=== PATIENT | male | born 1955 | race Hispanic/Latino ===

== ENCOUNTER 2017-09-14 09:18 | Inpatient (IN) | payer BC ==
--- NOTE | 2017-09-14 09:50 | ED PDOC ---
Arrival/HPI - General Chief Complaint: Lower Extremity Problem/Injury Time Seen by Provider: 09/14/17 09:39 Historian: Patient - History of Present Illness Narrative History of Present Illness (Text): 09/14/17 09:40 61 year old male, who presents to the emergency department complaining of left sided hip and thigh pain since 1 day s/p mechanical fall on the way home. Patient reports slipping and landing on his left side and it has become worse today since he cannot bear weight and has difficulty walking. Patient denies head trauma, or loss of consciousness. Patient denies nausea, vomiting, abdominal pain, fever, or other complaints. Time/Duration: 24 hours Symptom Onset: Sudden Symptom Course: Unchanged, Worsening Activities at Onset: Light Context: Street, Slipped Past Medical History - Provider Review Nursing Documentation Reviewed: Yes - Psychiatric Hx Psychophysiologic Disorder: No Hx Substance Use: No - Anesthesia Hx Anesthesia: No Family/Social History - Physician Review Nursing Documentation Reviewed: Yes Family/Social History: Unknown Family HX Smoking Status: Never Smoked Hx Alcohol Use: No Hx Substance Use: No Allergies/Home Meds Allergies/Adverse Reactions: Allergies No Known Allergies Allergy (Verified 09/14/17 09:39) Home Medications: Home Meds Medication Instructions Recorded Confirmed No Known Home Med 09/14/17 09/14/17 Review of Systems - Review of Systems Constitutional: absent: Fevers ENT: absent: Sinus Congestion Respiratory: absent: SOB Cardiovascular: absent: Chest Pain Gastrointestinal: absent: Abdominal Pain Genitourinary Male: absent: Dysuria Musculoskeletal: Other (left sided hip pain and leg pain) Skin: absent: Rash Neurological: absent: Headache Endocrine: absent: Diaphoresis Physical Exam Vital Signs Temp Pulse Resp BP Pulse Ox 09/14/17 10:04 98.1 F 88 16 133/87 99 Appearance: Positive for: Well-Appearing, Non-Toxic, Comfortable Pain Distress: None Mental Status: Positive for: Alert and Oriented X 3 - Systems Exam Head: Present: Atraumatic, Normocephalic Extroacular Muscles: Present: EOMI Conjunctiva: Present: Normal Mouth: Present: Moist Mucous Membranes Upper Extremity: Present: Normal Inspection, Normal ROM, NORMAL PULSES, Neurovascularly Intact, Capillary Refill < 2s. No: Cyanosis, Edema, Tenderness , Swelling, Erythema, Deformity Lower Extremity: Present: Normal Inspection, NORMAL PULSES, Tenderness (left sided hip tenderness. worse with external rotation of hip), Neurovascularly Intact (good strength and sensation intact), Capillary Refill < 2 s. No: Edema , Cyanosis, Swelling, Erythema Neurological: Present: GCS=15, CN II-XII Intact, Speech Normal, Normal Cerebellar Funct Skin: Present: Warm, Dry, Normal Color. No: Rashes Psychiatric: Present: Alert, Oriented x 3, Normal Insight, Normal Concentration Medical Decision Making ED Course and Treatment: 09/14/17 Impression: 61 year old with left sided hip tenderness. worse with external rotation of hip complaining of left sided hip pain s/p mechanical fall. Differential Diagnosis included but are not limited to: r/o dislocation r/o fracture Plan: -- Left hip x-ray -- Toradol -- Reassess and disposition Progress Notes: 09/14/17 12:[address] Castorena who referred Dr. Allan. Dr. Allan came to evaluate patient and will plan for surgery. 09/14/17 12:00 Hip x-ray: Creator : Bam Godfrey MD FINDINGS: There is a minimally displaced intertrochanteric fracture of the left hip. There is chronic deformity of the femoral head and degenerative changes with bony sclerosis and loss of the joint space. IMPRESSION: Intertrochanteric fracture of the left hip EKG: NSR at [address] elevations, nl intervals - Lab Interpretations Lab Results: 09/14/17 11:40 09/14/17 11:40 Lab Results 09/14/17 11:40: Sodium 141, Potassium 4.2, Chloride 105, Carbon Dioxide 26, Anion Gap 13, BUN 18, Creatinine 0.7 L, Est GFR ( Amer) > 60, Est GFR ( Non-Af Amer) > 60, Random Glucose 125 H, Calcium 9.6 09/14/17 11:40: WBC 16.7 H, RBC 4.78, Hgb 14.3, Hct 43.0, MCV 90.0, MCH 29.9, MCHC 33.3, RDW 14.1, Plt Count 154, MPV 10.5, Gran % 85.8 H, Lymph % (Auto) 5.9 L, Howell % (Auto) 8.1 H, Eos % (Auto) 0.1 L, Baso % (Auto) 0.1, Gran # 14.33 H, Lymph # (Auto) 1.0 L, Howell # (Auto) 1.4 H, Eos # (Auto) 0.0, Baso # (Auto) 0.02 09/14/17 11:37: Blood Type O POSITIVE, Antibody Screen Negative, BBK History Checked No verified bt - RAD Interpretation Radiology Orders: 09/14/17 09:47 HIP MIN 2V W/ PELVIS LT [RAD] Stat 09/14/17 11:16 CHEST PORTABLE [RAD] Stat Resolution Specialist: Radiologist - Medication Orders Current Medication Orders: Discontinued Medications Ketorolac Tromethamine (Toradol) 30 mg IM STAT STA Stop: 09/14/17 09:48 Last Admin: 09/14/17 10:17 Dose: 30 mg MAR Pain Assessment Document 09/14/17 10:17 MS (Rec: 09/14/17 10:18 MS [facility] Pain Reassessment Is this a pain reassessment? No Sleep Is patient sleeping during reassessment? No Presence of Pain Presence of Pain Yes Pain Scale Used Pain Scale Used Numeric Location Left, Right or Bilateral Left Pain Location Body Site Hip Description Description Constant Intensity of Pain at present 7 Pain Behavior Guarding Rubbing Site IM Administration Charges Document 09/14/17 10:17 MS (Rec: 09/14/17 10:18 MS [facility] Injection Site MAR Injection Site Left Deltoid Charges for Administration # of IM Administrations 1 - Scribe Statement The provider has reviewed the documentation as recorded by the Alfredibbill Loyola Provider Scribe Attestation: All medical record entries made by the Scribbill were at my direction and personally dictated by me. I have reviewed the chart and agree that the record accurately reflects my personal performance of the history, physical exam, medical decision making, and the department course for this patient. I have also personally directed, reviewed, and agree with the discharge instructions and disposition. Disposition/Present on Arrival - Present on Arrival Any Indicators Present on Arrival: No History of DVT/PE: No History of Uncontrolled Diabetes: No Urinary Catheter: No History of Decub. Ulcer: No History Surgical Site Infection Following: None - Disposition Have Diagnosis and Disposition been Completed?: Yes Diagnosis: Hip fracture, left Disposition: HOSPITALIZED Disposition Time: 11:48 Patient Plan: Admission Condition: FAIR
--- NOTE | 2017-09-14 11:23 | RAD ---
PROCEDURE: Pelvis and left hip HISTORY: left hip pain r/o fracture vs dislocation COMPARISON: TECHNIQUE: Two views FINDINGS: There is a minimally displaced intertrochanteric fracture of the left hip. There is chronic deformity of the femoral head and degenerative changes with bony sclerosis and loss of the joint space. IMPRESSION: Intertrochanteric fracture of the left hip
[2017-09-14 11:53] LABS: BASO # 0.02 K/mm3 (0.0-2.0); BASO % 0.1 % (0.0-3.0); EOS % 0.1 % (1.5-5.0); GRAN # 14.33 (1.4-6.5); GRAN % 85.8 % (50.0-68.0); HEMOGLOBIN 14.3 g/dL (14.0-18.0); LYMPH % 5.9 % (22.0-35.0); MEAN CORPUSCULAR HEMOGLOBIN 29.9 pg (25.0-35.0); MEAN CORPUSCULAR HGB CONC 33.3 g/dl (31.0-37.0); MEAN PLATELET VOLUME 10.5 fl (7.0-11.0); MONO # 1.4 (0.1-0.6); MONO % 8.1 % (1.0-6.0); RBC 4.78 10^6/uL (3.5-6.1); RED CELL DISTRIBUTION WIDTH 14.1 % (11.5-14.5); WHITE BLOOD COUNT 16.7 10^3/ul (4.5-11.0)
[2017-09-14 12:03] LABS: BLOOD UREA NITROGEN 18 mg/dL (7-21); CALCIUM 9.6 mg/dL (8.4-10.5); GFR AFRICAN-AMERICAN > 60; GFR NON-AFRICAN AMERICAN > 60
--- NOTE | 2017-09-14 12:35 | RAD ---
HISTORY: preop COMPARISON: No prior. FINDINGS: LUNGS: No active pulmonary disease. PLEURA: No significant pleural effusion identified, no pneumothorax apparent. CARDIOVASCULAR: Normal. OSSEOUS STRUCTURES: No significant abnormalities. VISUALIZED UPPER ABDOMEN: Normal. OTHER FINDINGS: None. IMPRESSION: No active disease.
[2017-09-14 14:56] LABS: INR 1.21 (0.93-1.08); PARTIAL THROMBOPLASTIN TIME 28.7 Seconds (25.1-36.5); PROTHROMBIN TIME 13.9 SECONDS (9.4-12.5)
[2017-09-14 15:14] VITALS: BMI 25.8
[2017-09-14] MEDS ORDERED: Influenza Vaccine 60 mcg/0.5 mL SYR (4YR UP) IM ONE (15:14)
[2017-09-14] MEDS ORDERED: Pneumococcal 23-Valent Vaccine IM ONE (15:14)
[2017-09-14] MEDS: ceFAZolin 1 gm in NS 1 GM/100 ML BAG IVPB SCH ×2 (16:14→22:23)
--- NOTE | 2017-09-14 17:25 | CARD ---
APPROVED REPORT EKG Measurement Heart [id number] <Conclusion> Normal sinus rhythm Normal ECG
[2017-09-14] MEDS: Oxycodone/Acetaminophen 5/325 mg Tab PO PRN (20:01)
--- NOTE | 2017-09-15 01:12 | HP ---
DATE OF EXAM: 09/14/2017 HISTORY OF PRESENT ILLNESS: This 61-year-old male is admitted with acute left hip fracture. He states that last evening he was walking on black ice, slipped and fell and injured his left hip. He went home, took some [id number]-pso-[id number] anti-inflammatory agents and thought it was a bruise that would wear off with rest. However, this morning when he tried to weight bear and walk on it, he had extreme pain and could not put any weight on his left hip and came to the [facility] ER for further evaluation of the above. There, he was noted to have x-ray evidence of left hip fracture and is admitted for the above. Upon further questioning of the patient, when he fell, he denied any loss of consciousness and states he did not hit his head or any other bones. When questioning this patient, he denied any fever, chills and states he is on no outpatient medication and has no known illnesses. ALLERGIES: HE DENIED MEDICATION ALLERGY. 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 FAMILY HISTORY: Noncontributory. HOME MEDICATIONS: None. REVIEW OF SYSTEMS: CONSTITUTIONAL REVIEW: He denied fever or chills. HEENT: Head review, denied any loss of consciousness or head trauma. Eye review, denied change in visual acuity. Ear review, denied hearing loss. Throat review, denied swallowing difficulty. NECK REVIEW: Denied stiffness. CARDIAC: Denied any knowledge of hypertension or myocardial infarction. PULMONARY: No cough. No hemoptysis. GI: No knowledge of hematemesis or melena. : No dysuria. SKIN: No rashes. VASCULAR: No claudication. PSYCHOLOGICAL: No depression. No anxiety. NEUROLOGICAL: No stroke. PHYSICAL EXAMINATION: VITAL SIGNS: Temperature 98.1, respirations 16, pulse 88 and blood pressure 133/87 with a pulse ox of 99% on room air. HEENT: Head, normocephalic and atraumatic. Eyes, no icterus. Ears, clear. Throat, non-injected. NECK: Supple. HEART: Was regular. S1, S2. No pathological rubs, murmurs or gallops. LUNGS: Were clear to auscultation. ABDOMEN: Was soft, nontender. No palpable organomegaly. No rebound, no guarding, no tenderness. EXTREMITIES: No clubbing, no cyanosis, no edema. Left hip was slightly externally rotated with pain on movement. SKIN: Without rash. NEUROLOGICAL: Intact. PSYCHOLOGICAL: Alert. VASCULAR: Legs warm to touch. Chest x-ray was reviewed. There was no evidence of pneumonia, pleural effusion or pneumothorax. Left hip x-ray was reviewed. It revealed an intertrochanteric fracture of the left hip. There were degenerative changes noted consistent with chronic arthritis. EKG was normal sinus rhythm. Labs showed white count 16,700, hemoglobin 14.3, hematocrit 43.0, platelets 154,000. PT/INR 1.21. PTT 28.7. Sodium 141, K 4.2, chloride 105, bicarb 26, BUN 18, creatinine 0.7 and random blood sugar 125. IMPRESSION: This is a 61-year-old male with a slip and fall and acute left hip fracture that will require surgical repair with probable stress leukocytosis and need for deep vein thrombosis prophylaxis given his bedridden status at present. PLAN: The patient will have blood and urine cultures obtained for completeness sake and will be covered with Ancef 1 g IV q.8 hours while awaiting culture results, he is ordered to have Zofran 4 mg IV q.6 hours p.r.n. nausea and vomiting, Tylenol 650 p.o. q.6 hours p.r.n. mild pain or temperature greater than 101, Percocet 5/325 one tablet p.o. q.6 hours p.r.n. severe pain and he will start heparin post operatively as outlined by Dr. Faulkner from Orthopedic Surgery. I have instructed his nurse, John Hankins, registered nurse, to instruct the patent on the use of incentive spirometry. He is ordered to have a regular diet, but will be n.p.o. past midnight in preparation for surgical repair of the left hip fracture in the a.m. and he is also ordered to have a basic metabolic panel and CBC again in the a.m. All of the above was discussed in detail with patient and nursing at bedside. All questions were answered. He will need to be scheduled for transferred for subacute rehab when medically stable postoperatively. Raeann Castorena MD [facility] # [id number] KONG
[2017-09-15 01:35] LABS: PH,URINE 6.5 (4.7-8.0); URINE BILIRUBIN NEGATIVE (NEGATIVE); URINE BLOOD NEGATIVE (NEGATIVE); URINE GLUCOSE (UA) NEGATIVE (NEGATIVE); URINE LEUKOCYTE ESTERASE NEGATIVE Leu/uL (NEGATIVE); URINE PROTEIN NEGATIVE mg/dL (<30 mg/dL)
[2017-09-15 01:36] LABS: URINE APPEARANCE CLEAR (CLEAR); URINE COLOR YELLOW (YELLOW)
[2017-09-15] MEDS: ceFAZolin 1 gm in NS 1 GM/100 ML BAG IVPB SCH ×3 (06:37→21:56)
[2017-09-15 07:19] LABS: HEMOGLOBIN 13.6 g/dL (14.0-18.0); MEAN CELL VOLUME 90.9 fl (80.0-105.0); MEAN CORPUSCULAR HEMOGLOBIN 28.9 pg (25.0-35.0); MEAN CORPUSCULAR HGB CONC 31.9 g/dl (31.0-37.0); MEAN PLATELET VOLUME 10.7 fl (7.0-11.0); RBC 4.7 10^6/uL (3.5-6.1); RED CELL DISTRIBUTION WIDTH 14.1 % (11.5-14.5); WHITE BLOOD COUNT 12.2 10^3/ul (4.5-11.0)
[2017-09-15] MEDS ORDERED: Nitroglycerin 2% Ointment Foilpak UD TOP PRN (07:22)
[2017-09-15 07:55] LABS: BLOOD UREA NITROGEN 11 mg/dL (7-21); CALCIUM 9.5 mg/dL (8.4-10.5); GFR AFRICAN-AMERICAN > 60; GFR NON-AFRICAN AMERICAN > 60
[2017-09-15] MEDS ORDERED: Midazolam 2 MG/2 ML VIAL ONE (08:59)
[2017-09-15] MEDS ORDERED: Propofol 10 mg/ml Inj (20 ML) ONE (08:59)
[2017-09-15] MEDS ORDERED: Rocuronium 10 mg/ml (5 ml) ONE (09:10)
[2017-09-15] MEDS ORDERED: Sodium Chloride 0.9% 1,000 ML IV SCH (09:15)
[2017-09-15] MEDS ORDERED: Sevoflurane - Inhalation Anesthetic Liq (250 ml) ONE (09:16)
[2017-09-15] MEDS ORDERED: Bupivacaine 0.5% Inj(30mL) ONE (09:34)
[2017-09-15] MEDS ORDERED: HYDROmorphone 0.5 mg/0.5 ml ISec ONE ×2 (11:13→11:41)
--- NOTE | 2017-09-16 00:50 | PN ---
DATE: 09/15/2017 SUBJECTIVE: This 61-year-old male was examined post left hip fracture repair. He is status post open reduction and internal fixation with pinning via an anterior approach to repair his left hip fracture by Dr. Bam Faulkner from Orthopedics. Patient postoperatively is alert and oriented, complaining of expected postoperative pain and denying any fever, chills, chest pain or shortness of breath. PHYSICAL EXAMINATION: GENERAL: Patient was lying in bed. VITAL SIGNS: Temperature of 97.9, respirations 16, pulse 80 and blood pressure 165/96 and pulse ox of 96% room air. HEENT: Head: Normocephalic, atraumatic. Eyes: No icterus. Ears: Clear. Throat: Noninjected. NECK: Supple. HEART: Regular S1, S2. LUNGS: Clear. ABDOMEN: Soft. EXTREMITIES: No edema. Left hip dressing clean and intact. VASCULAR: Legs warm to touch. PSYCHOLOGIC: Alert and oriented x3. NEUROLOGIC: Grossly intact. LABORATORY DATA: White count 12,200, previously 16,700; hemoglobin 13.6; hematocrit 42.7; platelets 145,000. PT/INR 1.21, PTT 28.7. Sodium 138, K 4.0, chloride 106, bicarb 26, BUN 11, creatinine 0.6, random blood sugar 113, calcium 9.5. Urinalysis unremarkable. Blood culture, no growth at 24 hours. IMPRESSION: A 61-year-old male status post a slip and fall where he sustained a left intertrochanteric fracture of the left hip that was repaired today and now is postop. PLAN: As discussed with the patient and Dr. Bam Faulkner, will be to maintain this patient on incentive spirometry and I have encouraged the patient to perform it q. 1 hour. He continues on Ancef 1 g IV q. 8 hours as agreed upon with Dr. Bam Faulkner, Orthopedics. He will resume heparin 5000 units subcu q. 12 tomorrow when cleared by Dr. Faulkner. He continues on Toradol 30 mg IM q. 6 hours p.r.n. severe pain, Tylenol 650 p.o. q. 6 hours p.r.n. [id number] pain and Percocet 5-325 one p.o. q. 6 hours p.r.n. severe pain. He is ordered to have Zofran 4 mg IV q. 6 hours p.r.n. nausea, vomiting. There is an order for nitroglycerin 1 inch to chest wall q. 4 hours p.r.n. accelerated hypertension if systolic blood pressure should be greater than 160 or diastolic blood pressure should be greater than 100. I am awaiting the results of his urine culture. He will have a repeat CBC and comprehensive metabolic panel in the a.m. and patient continues on regular diet and is wearing antiembolism compression stockings as outlined by Dr. Faulkner. Patient has an order to discontinue his operative Morrow catheter in the morning and physical therapy will be outlined by Orthopedics based on their clinical judgment. All of the above was reviewed in detail with patient and nursing and Dr. Faulkner. All questions were answered. Raeann Castorena MD [email or web address]
[2017-09-16] MEDS: ceFAZolin 1 gm in NS 1 GM/100 ML BAG IVPB SCH ×2 (05:49→13:51)
[2017-09-16 07:42] LABS: HEMOGLOBIN 11.6 g/dL (14.0-18.0)
[2017-09-16 07:52] LABS: ALB/GLOB RATIO 1.2 (1.1-1.8); ALBUMIN 3.2 g/dL (3.0-4.8); ALT/SGPT 40 U/L (7-56); AST/SGOT 41 U/L (17-59); BLOOD UREA NITROGEN 14 mg/dL (7-21); CALCIUM 8.5 mg/dL (8.4-10.5); GFR AFRICAN-AMERICAN > 60; GFR NON-AFRICAN AMERICAN > 60
[2017-09-16 08:56] VITALS: RESP 20
[2017-09-16 11:34] LABS: BASO # 0.02 K/mm3 (0.0-2.0); BASO % 0.2 % (0.0-3.0); EOS # 0.2 (0.0-0.7); EOS % 1.5 % (1.5-5.0); GRAN # 10.01 (1.4-6.5); GRAN % 79.9 % (50.0-68.0); HEMOGLOBIN 12.3 g/dL (14.0-18.0); LYMPH # 1.2 (1.2-3.4); LYMPH % 9.5 % (22.0-35.0); MEAN CELL VOLUME 90.1 fl (80.0-105.0); MEAN CORPUSCULAR HEMOGLOBIN 29.1 pg (25.0-35.0); MEAN CORPUSCULAR HGB CONC 32.3 g/dl (31.0-37.0); MEAN PLATELET VOLUME 10.7 fl (7.0-11.0); MONO # 1.1 (0.1-0.6); MONO % 8.9 % (1.0-6.0); RBC 4.23 10^6/uL (3.5-6.1); RED CELL DISTRIBUTION WIDTH 13.7 % (11.5-14.5); WHITE BLOOD COUNT 12.5 10^3/ul (4.5-11.0)
--- NOTE | 2017-09-16 14:44 | PN ---
DATE: 09/16/2017 SUBJECTIVE: A 61-year-old male. The patient is 1 day postop of his left hip fracture treated with a peritroch marlen from [employer]. He does have ipsilateral arthritis of his left hip also, but he is moving around quite well in bed. We are going to get him up out of bed and ambulate with a walker, weightbearing to tolerance and his labs look stable. Plan is to get him to a subacute rehab in a couple of days and progress therapy there and he will be out of work for at least 3 months. Otherwise, he is doing well. Bam Faulkner DO
--- NOTE | 2017-09-16 16:06 | PN ---
DATE: 09/16/2017 SUBJECTIVE: This 61-year-old male was examined at the bedside. He was out of bed to chair. This case was reviewed in detail with himself, family and nurse, Margaret Dunbar, registered nurse. The patient was seen earlier today by Dr. Faulkner. He has already walked with a walker with physical therapy. He complains of expected left postoperative hip repair pain and is receiving parenteral Toradol and oral Tylenol p.r.n. discomfort. Of note, he denies any fever, chills, chest pain or shortness of breath. PHYSICAL EXAMINATION VITAL SIGNS: Temperature is 98.3, respirations 20, pulse 97 and blood pressure 134/92 with a pulse ox of 94% on room air. HEENT: Head: Normocephalic, atraumatic. Eyes: No icterus. Ears: Clear. Throat: Noninjected. NECK: Supple. HEART: Regular S1, S2. LUNGS: Clear. ABDOMEN: Soft. EXTREMITIES: No edema. SKIN: Without rash. NEUROLOGIC: Intact. PSYCHOLOGIC: Alert. VASCULAR: Legs warm to touch. Left hip dressing clean and dry. LABORATORY DATA: White count 12,500, initially 16,700; hemoglobin 12.3; hematocrit 38.1; platelets 143,000. PT/INR 1.21, PTT 28.7. Sodium 139, K 3.8, chloride 107, bicarb 24, BUN 14, creatinine 0.6, random blood sugar 103. All liver function testing was normal including bilirubin 0.8, AST 41, ALT 40 and alkaline phosphatase 53. Urinalysis was unremarkable. IMPRESSION: This is a 61-year-old male admitted with acute left hip fracture secondary to a slip and fall with expected postoperative pain and stress leukocytosis improving with microbiology report showing no growth of blood and urine cultures to date. PLAN: The plan as discussed with the patient, Dr. Bam Faulkner from Orthopedics and nursing is to continue Ancef 1 g IV q. 8 hours as ordered by Orthopedics, Dr. Bam Faulkner. He is also ordered to have heparin 5000 units subcu q. 12, nitroglycerin 1 inch to chest wall q. 4 hours p.r.n. accelerated hypertension if systolic blood pressure is greater than 160 or diastolic blood pressure is greater than 100. He also will receive Toradol 30 mg IV q. 6 hours p.r.n. moderate pain, Percocet 5/325 mg 1 tablet p.o. q. 6 hours p.r.n. severe pain and Tylenol 650 p.o. q. 6 hours p.r.n. mild pain. There is an order for Zofran 4 mg IV q. 6 hours p.r.n. nausea or vomiting. The patient did perform incentive spirometry successfully for me. He is on a regular soft bland diet and is ordered to have antiembolism stockings and physical therapy as ordered by Orthopedics. Ultimate plan will be to arrange for the patient to have transferred to subacute rehab with ultimate plans for discharge to home when medically stable. The patient will have a repeat CBC in the morning and all of the above was discussed in detail with the patient, family and nursing at bedside. All questions were answered. Raeann Castorena MD MTDD
[2017-09-16] MEDS: Oxycodone/Acetaminophen 5/325 mg Tab PO PRN (17:58)
[2017-09-17 07:33] VITALS: PULSE 96
[2017-09-17 07:52] LABS: ALB/GLOB RATIO 1.1 (1.1-1.8); ALBUMIN 3.2 g/dL (3.0-4.8); ALT/SGPT 46 U/L (7-56); AST/SGOT 48 U/L (17-59); BLOOD UREA NITROGEN 11 mg/dL (7-21); CALCIUM 9.1 mg/dL (8.4-10.5); GFR AFRICAN-AMERICAN > 60; GFR NON-AFRICAN AMERICAN > 60
--- NOTE | 2017-09-17 08:23 | CON ---
DATE: 09/14/2017 ORTHOPEDIC CONSULTATION Admitted to the hospital on 09/14/2017, and seen in the emergency room as a consult from Dr. Castorena with left hip fracture, intertrochanteric type with associated osteoarthritis of left hip and will require open reduction and internal fixation, which we could plan to do in the next day, which will be the 09/15/2017 and is going to be cleared by Dr. Castorena, does not need a cardiac consult and we will keep him n.p.o. tonight and do the surgery at 8:30 in the morning on 09/15. The patient understands the risks and benefits. Bam Faulkner DO
--- NOTE | 2017-09-17 08:24 | OP ---
PROCEDURE DATE: 09/16/2017 A 61-year-old male in room 565, bed 1, was admitted with a fracture of his left hip, intertrochanteric type. PREOPERATIVE DIAGNOSES: Left hip intertrochanteric fracture with associated osteoarthritis of the left hip. POSTOPERATIVE DIAGNOSES: Left hip intertrochanteric fracture withe associated osteoarthritis of the left hip. PROCEDURE: Open reduction and internal fixation of left hip intertrochanteric fracture with a [employer] peritrochanteric marlen. TYPE OF ANESTHESIA: General endotracheal tube. DESCRIPTION OF PROCEDURE: In summary, the patient was taken to the OR. Left hip was prepped and draped in sterile fashion. Once the anesthesia was induced, we gave him antibiotics, 1 g of Ancef. Then made an incision proximal to the left hip of 5 cm x 2 inches and an inch and half long, allowing to palpate the greater trochanter once we open up the fascia. Then inserted a threaded-tip guidewire down the greater trochanter into the shaft, over reamed everything with an appropriate reamer, and passed down the 180-mm long intramedullary marlen, and locked it proximally with a second incision going through femoral head and neck to allow us to put in the 100-mm long lag screw to secure the fracture and fracture was reduced and a final locking screw was put in with a third incision of 3.5 mm wide x 38 mm long. Then the three wounds were irrigated with normal saline and closed in layers starting with 0-Vicryl for deep layer, 2-0 Vicryl for subcutaneous, and skin with 2-0 nylon interrupted. Patient was taken to recovery room in good condition. Bam Faulkner DO
--- NOTE | 2017-09-17 08:33 | OP ---
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 PROCEDURE: Open reduction internal fixation of left hip with insertion of [employer] peritrochanteric marlen Affixus type utilizing 180-mm long intramedullary marlen with a 125 degree angle for the lag screw into the femoral head and neck and locked distally with one cortical screw each with its own incision. TYPE OF ANESTHESIA: General endotracheal tube. DESCRIPTION OF PROCEDURE: The patient was taken to OR. Under general anesthesia via endotracheal tube, left hip prepped and draped in sterile fashion on the fracture table. We could, with difficulty, reduce left hip because it was dysplastic from osteoarthritis and a malformed femoral neck and we reduced as best as possible though it would be difficult and in the future he is going to need a total hip on the left. So, we got the reduction done as best as possible with traction and rotation and then made a 2-cm incision proximal to the left great trochanter by about 5 cm in deep fascia and palpation of the great trochanter done in the threaded tip guidewire inserted into the great trochanter area just medial and anterior, and then went down through the femoral head and through the femoral shaft proximally and then distally. Then we over-reamed the proximal femur with a 17-mm reamer and used a 9-mm wide peritrochanteric nail to over the guidewire to secure into the femur, both above and below the fracture. Once it was in good position, with the help of the outrigger put a second incision for the drilling of the femoral head and neck in a most appropriate position which was along the calcar and in the middle of the head laterally. Once the reaming was done, we measured a 100 mm, put a nail to be used to insert into the femoral head and neck after the drilling and reaming. Once the fracture was reduced, we impacted the fracture distally and put in the 38-mm x 3.5-mm cortical screw to lock everything in the . The 3 wounds were irrigated with normal saline and closed in layers with running 0 Vicryl for the deep layer, 2-0 Vicryl for subcutaneous tissues, and the skin with 2-0 nylon interrupted. The patient was taken to recovery room in good condition. Bam Faulkner DO
--- NOTE | 2017-09-17 08:36 | CON ---
DATE: 09/14/2017 ORTHOPEDIC CONSULTATION HISTORY AND HOSPITAL COURSE: Patient was seen in the emergency room on 09/14/2017 this morning with the history of falling on the street and sustained a left hip fracture by x-rays. He also has left hip osteoarthritis. He was told that the way to fix this intertrochanteric fracture is to have a peritrochanteric marlen, which is an IM marlen, with femoral head and neck nail, and lock distally to help him to be able to ambulate again. In the future when the hip heals, he will always need a left hip total hip replacement. But, for now, he is going to go for the left hip pinning. Hopefully we could do it on Sunday morning. Dr. Castorena is going to clear the patient. His labs look fine and he knows the risks and benefits of the surgery for left hip intertrochanteric fracture which will be an IM marlen with a lag screw in the femoral head. Bam Faulkner DO
[2017-09-17 09:19] LABS: BASO # 0.03 K/mm3 (0.0-2.0); BASO % 0.3 % (0.0-3.0); EOS # 0.2 (0.0-0.7); EOS % 1.7 % (1.5-5.0); GRAN # 7.94 (1.4-6.5); GRAN % 78.9 % (50.0-68.0); HEMOGLOBIN 11.4 g/dL (14.0-18.0); LYMPH # 0.9 (1.2-3.4); LYMPH % 9.3 % (22.0-35.0); MEAN CELL VOLUME 89.9 fl (80.0-105.0); MEAN CORPUSCULAR HEMOGLOBIN 29.4 pg (25.0-35.0); MEAN CORPUSCULAR HGB CONC 32.7 g/dl (31.0-37.0); MEAN PLATELET VOLUME 10.9 fl (7.0-11.0); MONO % 9.8 % (1.0-6.0); RBC 3.88 10^6/uL (3.5-6.1); RED CELL DISTRIBUTION WIDTH 13.8 % (11.5-14.5); WHITE BLOOD COUNT 10.1 10^3/ul (4.5-11.0)
--- NOTE | 2017-09-17 12:41 | DS ---
SUBJECTIVE: This 61-year-old male was examined at the bedside. He was able to stand with physical therapy and ambulate with a rolling walker. He complains of expected postoperative left hip pain that is complicated by both his fracture and chronic degenerative arthritis. Today, he denies any fever or chills and is able to perform incentive spirometry. PHYSICAL EXAMINATION: Temperature is 98.3, respirations 20, pulse 96 and blood pressure 128/89 with a pulse ox of 97% on room air. HEENT: Head normocephalic, atraumatic. Eyes: No icterus. Ears: Clear. Throat: Noninjected. NECK: Supple. HEART: Regular S1, S2. LUNGS: Clear. ABDOMEN: Soft. EXTREMITIES: No edema. SKIN: Without rash. NEUROLOGICAL: Intact. PSYCHOLOGICAL: Alert. VASCULAR: Legs warm to touch. LABORATORY DATA: Blood culture showed no growth at 48 hours and urine culture shows no growth. Labs show white count 10,100, hemoglobin 11.4, hematocrit 34.9, platelets 136,000. Sodium 139, K 4.3, chloride 106, bicarb 25, BUN 11, creatinine 0.6, random blood sugar 104. All liver function testing was normal including bilirubin 0.7, AST 48, ALT 46 and alk phos 62. Urinalysis was unremarkable. IMPRESSION: A 61-year-old male, status post a slip and fall where he fractured his left hip and required a left hip pain, which was completed successfully on 09/16/2017. The patient is now out of bed to chair. Ordered to have physical therapy and is being readied for transfer to subacute rehab for reconditioning and gait training. PLAN: The plan as discussed with the patient, Dr. Bam Faulkner from Orthopedics and nursing is to continue heparin 5000 units subcu q. 12, Tylenol 650 p.o. q. 6 hours p.r.n. mild pain, Toradol 30 mg IV q. 6 hours p.r.n. moderate pain and Percocet 1 tablet p.o. q. 6 hours p.r.n. severe pain. The patient will continue with incentive spirometry, regular diet, antiembolism stockings and physical therapy. Ultimate plan will be for transfer to subacute rehab and then outpatient office followup when medically stable. All of the above was discussed in detail with the patient, nursing and Orthopedics. All questions were answered. Raeann Castorena MD [email or web address]
[2017-09-17 17:00] VITALS: BP 133/87; TEMP 98.4; O2SAT 96
--- NOTE | 2017-09-18 12:26 | RAD ---
PROCEDURE: Fluoroscopy up to 1 hour HISTORY: O.R.I.F. LEFT HIP FX. COMPARISON: TECHNIQUE: Fluoroscopy was provided in the operating room. 83.5 seconds fluoro time. Four images were submitted FINDINGS: The study shows internal fixation of a left intertrochanteric fracture with a compression screw and marlen. There is anatomic alignment IMPRESSION: As above
== END 2017-09-17 18:03 | DRG 482 ==
LOC: ED 09:18 → ERH 11:48 → 5RNO 13:40
PROVIDERS: ADMIT Internal Medicine; ATTEND Internal Medicine
PROC: 0QS706Z Reposition Left Upper Femur with Intramedullary Internal Fixation Device, Open Approach (ICD-10-PCS; principal; 2017-09-15 08:30)
DX: S72.142A Displaced intertrochanteric fracture of left femur, initial encounter for closed fracture (principal); M16.12 Unilateral primary osteoarthritis, left hip; Y93.01 Activity, walking, marching and hiking; W00.0XXA Fall on same level due to ice and snow, initial encounter; Y92.480 Sidewalk as the place of occurrence of the external cause